=== PATIENT | female | born 1945 | race Caucasian/White ===

== ENCOUNTER 2017-06-16 17:42 | Emergency (ER) | payer MEDICARE ==
[2017-06-16] MEDS ORDERED: AMLODIPINE BESYLATE 5 MG TABLET PO ONE (19:03)
[2017-06-16 19:28] LABS: ABSOLUTE BASOPHILS # (AUTO) 0.1 10^3/uL (0.0-0.2); ABSOLUTE EOSINOPHILS # (AUTO) 0.3 10^3/uL (0.0-0.6); ABSOLUTE LYMPHOCYTES (AUTO) 2.4 10^3/uL (0.5-4.7); ABSOLUTE MONOCYTES (AUTO) 0.7 10^3/uL (0.1-1.4); ABSOLUTE NEUT (AUTO) 3.4 10^3/uL (1.7-8.2); EOSINOPHILS % (AUTO) 4.9 % (0-6); HEMATOCRIT 37.8 % (36.0-47.0); HEMOGLOBIN 12.9 g/dL (12.0-15.5); HGB HCT DIFFERENCE 0.9; LYMPHOCYTES % (AUTO) 34.6 % (13-45); MEAN CORPUSCULAR HEMOGLOBIN 31.4 pg (27.0-33.4); MEAN CORPUSCULAR HGB CONC 34.2 g/dL (32.0-36.0); MEAN CORPUSCULAR VOLUME 92 fl (80-97); MONOCYTES % (AUTO) 10.5 % (3-13); RED BLOOD COUNT 4.11 10^6/uL (3.72-5.28); RED CELL DISTRIBUTION WIDTH 14.1 % (11.5-14.0)
[2017-06-16 19:46] LABS: ANION GAP 14 (5-19); BLOOD UREA NITROGEN 21 mg/dL (7-20); CALCIUM 10.1 mg/dL (8.4-10.2); CARBON DIOXIDE 28 mmol/L (22-30); CHLORIDE 101 mmol/L (98-107); CREATININE RESULT 0.53 mg/dL (0.52-1.25); GLUCOSE 90 mg/dL (75-110); POTASSIUM 3.6 mmol/L (3.6-5.0); SODIUM 142.6 mmol/L (137-145)
--- NOTE | 2017-06-16 20:08 | ER Document Report ---
ED Blood Pressure Problem - General Chief Complaint: High Blood Pressure Stated Complaint: BLOOD PRESSURE ISSUES Time Seen by Provider: 06/16/17 19:03 Mode of Arrival: Ambulatory Information source: Patient Notes: Patient states approximate 1 month ago she had a stroke which is left over some right-sided weakness. Today she took her blood pressure at home and noticed that it was 180/110. She called her family physician who referred her to the emergency department. She denies any pain shortness breath or new weakness. Symptoms been very mild and intermittent. There is no radiation of symptoms. Nothing makes it better or worse. She has not recently had any changes in the antihypertensive medications. TRAVEL OUTSIDE OF THE [place] IN LAST 30 DAYS: No - Related Data Allergies/Adverse Reactions: Sulfa (Sulfonamide Antibiotics) Allergy (Verified 06/16/17 17:51) Past Medical History - Social History Smoking Status: Unknown if Ever Smoked Frequency of alcohol use: None Drug Abuse: None Lives with: Family Family History: Reviewed & Not Pertinent Patient has suicidal ideation: No Patient has homicidal ideation: No Renal/ Medical History: Denies: Hx Peritoneal Dialysis Review of Systems - Review of Systems Cardiovascular: denies: Chest pain, Palpitations Respiratory: denies: Cough, Short of breath Gastrointestinal: denies: Diarrhea, Vomiting Neurological/Psychological: denies: Confusion, Speech impairment -: Yes All other systems reviewed and negative Physical Exam - Vital signs Vitals: Temp Pulse Resp BP Pulse Ox 98.2 F 94 16 167/90 H 96 06/16/17 17:46 06/16/17 17:46 06/16/17 17:46 06/16/17 17:46 06/16/17 17:46 Interpretation: Hypertensive - General General appearance: Appears well, Alert In distress: None - HEENT Head: Normocephalic, Atraumatic Eyes: Normal Pupils: PERRL - Respiratory Respiratory status: No respiratory distress Chest status: Nontender Breath sounds: Normal Chest palpation: Normal - Cardiovascular Rhythm: Regular Heart sounds: Normal auscultation Murmur: No - Abdominal Inspection: Normal Distension: No distension Bowel sounds: Normal Tenderness: Nontender Organomegaly: No organomegaly - Back Back: Normal, Nontender - Extremities General upper extremity: Normal inspection, Nontender, Normal color, Normal ROM , Normal temperature General lower extremity: Normal inspection, Nontender, Normal color, Normal ROM , Normal temperature, Normal weight bearing. No: Sarah's sign - Neurological Neuro grossly intact: Yes Cognition: Normal Orientation: AAOx4 Peralta Coma Scale Eye Opening: Spontaneous Joey Coma Scale Verbal: Oriented Joey Coma Scale Motor: Obeys Commands Peralta Coma Scale Total: 15 Speech: Normal - Psychological Associated symptoms: Normal affect, Normal mood - Skin Skin Temperature: Warm Skin Moisture: Dry Skin Color: Normal Course - Vital Signs Vital signs: Temp Pulse Resp BP Pulse Ox 98.2 F 94 16 167/90 H 96 06/16/17 17:46 06/16/17 17:46 06/16/17 17:46 06/16/17 17:46 06/16/17 17:46 - Laboratory Result Diagrams: 06/16/17 19:10 06/16/17 19:10 Laboratory results interpreted by me: 06/16/17 06/16/17 19:10 19:10 RDW 14.1 H BUN 21 H Discharge - Discharge Clinical Impression: Uncontrolled hypertension Condition: Stable Disposition: HOME, SELF-CARE Instructions: High Blood Pressure ([facility]) Additional Instructions: Please call your primary care physician first thing in the morning to discuss possibly changing your blood pressure medications.
[2017-06-16 21:13] VITALS: BP 153/86
== END 2017-06-16 20:24 | disposition home or self-care (01) ==
LOC: ER 17:42
DX: I10 Essential (primary) hypertension (principal); R53.1 Weakness
CPT/HCPCS: 99283; 36415; 85025; 80048; A9270